=== PATIENT | male | born 1990 | race Caucasian/White ===

== ENCOUNTER → 2017-08-04 | Outpatient (CLI) | payer SELFPAY | END | disposition home or self-care (01) | LOC: YCFC.O 15:01 | PROVIDERS: ATTEND Nurse Practitioner Family | DX: Z00.00 Encounter for general adult medical examination without abnormal findings (principal); I10 Essential (primary) hypertension ==

== ENCOUNTER 2017-08-20 18:26 | Emergency (ER) | payer OTHER ==
--- NOTE | 2017-08-20 19:14 | ED.PDOC ---
History of Present Illness - General Chief Complaint: Upper Extremity Injury Stated Complaint: L forearm fracture - increased pain Time Seen by Provider: 08/20/17 19:11 Source: patient, RN notes reviewed, Vital Signs reviewed, family Exam Limitations: no limitations - History of Present Illness Initial Comments: Patient comes in with c/o of R forearm pain. He broke his arm yesterday @ 13: 30. He is concerned because the pain is worse and the Tylenol #4 is not helping. He is in a splint and sling. Occurred: yesterday Pain - Upper Extremity: severe: Forearm, right Method of Injury: direct blow - pipe fell on arm Improving Factors: nothing Worsening Factors: movement Allergies/Adverse Reactions: Allergies NO KNOWN ALLERGY Allergy (Verified 08/20/17 19:24) Home Medications: Ambulatory Orders Multiple Vitamins W/ Minerals [Centrum Silver] 1 ea PO DAILY 08/20/17 [place]-3 Fatty Acids [Fish Oil Pearls] 1 cap PO DAILY 08/20/17 PARoxetine HCL [Paxil] 20 mg PO DAILY 08/20/17 Propranolol HCl 80 mg PO DAILY 08/20/17 Review of Systems - Review of Systems Constitutional: States: no symptoms reported Respiratory: States: no symptoms reported Cardiology: States: no symptoms reported Musculoskeletal: States: see HPI Skin: States: no symptoms reported Neurological: States: numbness - R fingers All other Systems: No Change from Baseline Family Medical History - Family History Father Family History: No Known Living Status: Still Living Physical Exam - Physical Exam General Appearance: Alert, Comfortable, No apparent distress, Well Developed, Well Groomed, Well Hydrated, Well Nourished Cardiovascular/Respiratory: normal peripheral pulses - 2+ R radial pulse, no respiratory distress Elbow/Forearm Exam: limited ROM - Patient in sugar-tong splint and sling. Hand Exam: swelling - Moderate swelling of R hand w/ intact but decreased sensation. Brisk capillary refill Neuro/Tendon: normal motor functions, sensory deficit - slight decreased sensation to light touch R hand Mental Status: alert, oriented x 3 Skin Exam: normal color, warm/dry Progress - Progress Progress: 08/20/17 19:34 Discussed that pain is most likely due to swelling. Recommended Ice and elevation. - EKG/XRAY/CT XRAY: forearm - minimally displaced mid shaft radius fracture per Radiologist Departure - Departure Clinical Impression: Radius shaft fracture Qualifiers: Encounter type: subsequent encounter Fracture type: closed Fracture morphology : transverse Fracture alignment: nondisplaced Laterality: right Fracture healing : with routine healing Qualified Code(s): S52.324D - Nondisplaced transverse fracture of shaft of right radius, subsequent encounter for closed fracture with routine healing Time of Disposition: 19:34 Disposition: Discharge to Home or Self Care Condition: Good Departure Forms: ED Discharge - Pt. Copy, Patient Portal Self Enrollment Instructions: DI for Forearm Fracture Diet: resume usual diet Activity: increase activity as tolerated Referrals: CONRADO MARQUIS [Primary Care Provider] - 1-2 Weeks Home Medications: Ambulatory Orders Multiple Vitamins W/ Minerals [Centrum Silver] 1 ea PO DAILY 08/20/17 [place]-3 Fatty Acids [Fish Oil Pearls] 1 cap PO DAILY 08/20/17 PARoxetine HCL [Paxil] 20 mg PO DAILY 08/20/17 Propranolol HCl 80 mg PO DAILY 08/20/17 Additional Instructions: Keep scheduled follow up with Ortho Ice and Elevate arm
--- NOTE | 2017-08-20 19:26 | RAD ---
EXAM: Two view(s) of the right forearm. INDICATION: Pain. COMPARISON: None. FINDINGS: Overlying fiberglass splint obscures fine bony detail. There is a minimally displaced fracture of the midshaft of the radius with 2 mm of dorsal displacement of the distal radius in relation to the proximal shaft with minimal dorsal apex angulation. No definite fracture of the ulna is seen. IMPRESSION: Minimally displaced fracture of the midshaft of the radius. Electronically signed by: Shubham Porras MD 08/20/2017 7:25 PM CDT Workstation: [id number]
[2017-08-20] MEDS ORDERED: HYDROmorphone HCL INJ 2 MG/ML VIAL IM ONE (19:31)
[2017-08-20 19:43] VITALS: BP 135/76; O2SAT 97
[2017-08-20 19:58] VITALS: TEMP 97.9
== END 2017-08-20 19:58 | disposition home or self-care (01) ==
LOC: ER 18:26
DX: S52.391A Other fracture of shaft of radius, right arm, initial encounter for closed fracture (principal); W22.8XXA Striking against or struck by other objects, initial encounter; Y92.9 Unspecified place or not applicable
CPT/HCPCS: 73090; J1170

== ENCOUNTER → 2018-05-25 | Outpatient (CLI) | payer OTHER | LOC: YCFC.O 16:21 | PROVIDERS: ATTEND Nurse Practitioner Family | DX: E78.2 Mixed hyperlipidemia (principal) ==